=== PATIENT | male | born 2000 | race Two or more races ===

== ENCOUNTER 2024-06-15 13:38 | Emergency (ER) | payer MEDICAID, SELFPAY ==
[2024-06-15 13:39] VITALS: BMI 31.9
[2024-06-15 13:46] VITALS: BP 145/85; PULSE 62; RESP 18; TEMP 36.7; O2SAT 98
--- NOTE | 2024-06-15 13:52 | EDRME_ITS ---
Rapid Medical Screening Exam E Arrival date/time: 06/15/24 13:38 23-year-old male with no known medical history presents to the emergency room with a chief complaint of swelling and pain to the left testicle that began this morning. I have greeted and performed a focused initial assessment of this patient. A c omprehensive ED assessment and evaluation of the patient, analysis of all test results, and completion of the medical decision making process will be conducted by additional ED providers. Chief Complaint: Urogenital-Male Vital signs: Vital Signs Temperature 98.0 F 06/15/24 13:46 Pulse Rate 62 06/15/24 13:46 Respiratory Rate 18 06/15/24 13:46 Blood Pressure 145/85 H 06/15/24 13:46 Pulse Oximetry (%) 98 06/15/24 13:46 Oxygen Delivery Method Room Air 06/15/24 13:46 Vital signs reviewed by provider: Yes
--- NOTE | 2024-06-15 13:52 | XR_ITS ---
Examination: Testicular sonography complete Technique: Grayscale sonographic images testes, assessment arterial inflow venous outflow Doppler spectral analysis carful analysis Exam date and time: June 15, 2024 at 1440 hrs. Indications: Onset left testicular pain beginning 8:00 AM this morning Findings: Right testis 4.3 x 2.4 x 3.6 cm Epididymis 14 mm Arterial flow testicle. No testicular mass Left testis 3.7 x 2.3 x 3.4 cm Epididymis 30 mm Arterial flow testicle No testicular mass Left spermatic cord is enlarged and hypervascular 3.8 x 2.0 x 3.1 cm Impression: Negative for testicular torsion or testicular mass Significant left varicocele
[2024-06-15 15:47] LABS: Collection Type, Urine Clean Catch
[2024-06-15 15:59] LABS: Bacteria,Urine Rare; Bilirubin,Urine Negative (Negative); Blood,Urine Negative (Negative); Clarity,Urine Clear (Clear/Hazy); Color,Urine Yellow (Lt Yel-Yel); Culture Indicated,Urine Not Indicated; Glucose, Urine Negative (Negative); Hyaline Casts,Urine < 1 /hpf (0-1); Ketones,Urine Negative (Negative); Leukocyte Esterase,Urine Negative (Negative); Nitrite,Urine Negative (Negative); Protein,Urine Negative (Neg - Trace); RBC,Urine 3 /hpf (0-3); Squamous Epithelial Cell,Urine < 1 /hpf (0-5); Urobilinogen,Urine Negative mg/dL (0.0-1.0); WBC,Urine 1 /hpf (0-5)
--- NOTE | 2024-06-15 18:23 | EDNOTE_ITS ---
ED Male Genitalurinary RME/HPI General Chief complaint: Urogenital-Male Stated complaint: LEFT TESTICULAR PAIN AND NAUSEA Time Seen by Provider: 06/15/24 18:14 Source: patient Arrival date/time: 06/15/24 13:38 Mode of arrival: ambulatory Limitations: no limitations RME / HPI RME / HPI Narrative: 06/15/24 13:38 23-year-old male with no known medical history presents to the emergency room with a chief complaint of swelling and pain to the left testicle that began this morning. I have greeted and performed a focused initial assessment of this patient. A comprehensive ED assessment and evaluation of the patient, analysis of all test results, and completion of the medical decision making process will be conducted by additional ED providers. Dr. Guan?s Main ED Evaluation: 23-year-old male presents to the emergency department ambulatory for evaluation of severe testicular pain, which began at 8:00 AM earlier today. He describes the pain as intense and sharp, similar to the sensation of being kicked in the scrotum. Upon this exam, the pain has now significantly improved to 1/10 in severity. The patient reports experiencing a similar episode approximately two months ago, which lasted for about 15 minutes before spontaneously resolving. He denies any penile discharge, pus, or abnormal fluid drainage. He also denies symptoms suggestive of a urinary tract infection (UTI), including dysuria, frequency, urgency, or hematuria. Additionally, he reports no visible redness, swelling, or changes in the appearance of the scrotum. When asked about potential risk factors, the patient denies recent sexual activity with a partner of poor hygiene. Related Data Previous Rx's ?Medication ?Instructions ?Recorded ipratropium bromide 21 mcg (0.03 2 spray intranasal BI D #30 mL 04/13/18 %) nasal spray loratadine 10 mg tablet (Allergy 10 mg PO QDAY allergy symptoms #30 04/13/18 Relief (loratadine)) tabs pseudoephedrine HCl 30 mg tablet 30 mg PO Q6H PRN nasa l congestion 04/13/18 (Nasal Decongestant #20 tabs (pseudoephedrine)) Allergies Allergy/AdvReac Type Severity Reaction Status Date / Time No Known Allergies Allergy Verified 06/15/24 13:39 Review of Systems Review of Systems Systems Reviewed: All systems reviewed, normal except as documented Past Medical History Past Medical History CARDIAC: Negative Congestive Heart Failure RESPIRATORY: Negative Chronic Obstructive Pulmonary Disease (COPD) GENITOURINARY: Negative Renal Disease ENDOCRINE: Negative Diabetes Mellitus Type 1 or Diabetes Mellitus Type 2 Social History SMOKING STATUS: Current every day smoker ED Exam Narrative Physical exam: GENERAL APPEARANCE: alert and oriented x 4, well-developed, well-nourished, no acute distress VITALS: All vitals were reviewed and the pulse ox is 98% on room air, which is normal according to my interpretation. HEENT: Normocephalic, atraumatic; pupils equal, round, reactive to light; EOMI; mucous membranes pink, moist; oropharynx clear NECK: Supple LUNGS: CTABL; no wheezes, no rales, no rhonchi HEART: Regular rate, regular rhythm; normal S1, S2; no murmurs ABDOMEN: non distended; normal BS; soft, no tenderness, no guarding, no reboun d; no masses, no organomegaly, no hernia GENITALIA: Scrotum is without redness, swelling, or tenderness BACK: no CVA tenderness EXTREMITIES: atraumatic; no edema NEUROLOGIC: awake; alert and oriented x4; cranial nerves II-XII grossly intact; no focal sensory or motor deficits PSYCHIATRIC: appropriate mood and affect SKIN: warm, dry, normal color; no rashes General Limitations: Present no limitations Course Quality Measures none Orders Category Date Time Status US testicular Stat Exams 06/15/24 13:52 Completed UA, C/S IF [Urinalysis, C/S if Indicated] Stat Lab 06/15/24 15:33 Completed Vital Signs Vital signs: Vital Signs Temperature 98.0 F 06/15/24 13:46 Pulse Rate 62 06/15/24 13:46 Respiratory Rate 18 06/15/24 13:46 Blood Pressure 145/85 H 06/15/24 13:46 Pulse Oximetry (%) 98 06/15/24 13:46 Oxygen Delivery Method Room Air 06/15/24 13:46 Urogenital - Male MDM Narrative MDM Narrative:: The differential diagnosis includes gonorrhea, chlamydia, epididymitis, torsion and renal causes. Scribe Attestation: I, Bonnie Stevenson, am scribing for and in the presence of Dr. Guan. Provider Notation: Although this document has been carefully reviewed, there may still be some phonetic and other typographical errors. These errors are purely grammatical due to imperfections in the software program and should not be construed in any way to compromise the substance of the patient's medical care during this visit. Patient data External records reviewed:: [facility] previous records Clinical information provided by:: patient Social determinants that could affect healthcare access:: none Patient has the following chronic illnesses:: na How is presenting disease/condition affected by chronic disease/condition?: no chronic disease Evaluation data The following diagnostics were reviewed and interpreted by me:: lab results and radiology exam(s) Lab and/or radiology exams considered but not ordered:: na Interpretation Summary: Examination: Testicular sonography complete Exam date and time: June 15, 2024 at 1440 hrs. Indications: Onset left testicular pain beginning 8:00 AM this morning Findings: Right testis 4.3 x 2.4 x 3.6 cm Epididymis 14 mm Arterial flow testicle. No testicular mass Left testis 3.7 x 2.3 x 3.4 cm Epididymis 30 mm Arterial flow testicle No testicular mass Left spermatic cord is enlarged and hypervascular 3.8 x 2.0 x 3.1 cm Impression: Negative for testicular torsion or testicular mass Significant left varicocele Medications / Prescriptions Medications or Prescriptions considered but not ordered:: na Medication administrations:: as above, if any Consultations Consultation(s) initiated? (list below): No Diagnosis Urogenital Male Differential Diagnosis: other (see narrative) Most likely diagnosis given after review of the tests above:: see clinical impression below Admission Indicated Admission indicated?: not indicated Admission Request Was there a request for admission?: No Disposition Plan Disposition Plan: Discharge Discharge Attestation Discharge Attestation: The patient and all family members were given an opportunity to ask questions and understood the discharge instructions. Discharge instructions specifically effects, indications for sooner follow up or return to the emergency department, and the expected course of current diagnosis. Patient condition: Stable Discharge Plan Plan Patient Disposition: HOME (Self Care) Disposition Comment: Stable for discharge home Patient condition on transfer: Stable Prescriptions/Referrals Prescriptions/Med Rec: No Action loratadine [Allergy Relief (loratadine)] 10 mg tablet 10 mg PO QDAY Qty: 30 3RF pseudoephedrine HCl [Nasal Decongestant (pseudoeph)] 30 mg tablet 30 mg PO Q6H PRN (Reason: nasal congestion) Qty: 20 0RF ipratropium bromide 0.03 % spray,non-aerosol 2 spray INTRANASAL BID Qty: 30 0RF Rx Instructions: administer into each nostril; wait 30 seconds between sprays Referrals: Miri Allan PA-C [Primary Care Provider] - In 1 week Problem List Clinical Impression: Left testicular pain Patient/Caregiver Discharge Instructions Discharge Activity: activity as tolerated Education Materials: ED Testicular Pain, Unclear Cause Additional Instructions: Please return to the emergency department for any worsening or any further medical problems. Otherwise you should follow-up with your primary care doctor within the next several days If you continue to have pain you should be referred to a urologist. The urologist is a specialist in the area where you have pain. You should especially return to the ER right away if you notice any discharge from the penis, pain when you urinate, swelling or redness of the scrotum. Print Language: Maltese Stand Alone Forms: [facility] Award Info., Patient Portal Info Letter
== END 2024-06-15 19:02 | disposition home or self-care (01) ==
PROVIDERS: Nurse Practitioner Family; Emergency Provider Emergency Medicine; PCP Physician Assistant
DX: N50.812 Left testicular pain (principal)
CPT/HCPCS: 76870; 81001; 99284